=== PATIENT | female | born 1985 | race Caucasian/White ===

== ENCOUNTER 2018-01-05 17:16 | Emergency (ER) | payer OTHER ==
[2018-01-05 17:22] VITALS: BP 142/96; PULSE 81; TEMP 98.6; BMI 33.2
--- NOTE | 2018-01-05 17:24 | PDOC ---
Rapid Medical Evaluation Time Seen by Provider: 01/05/18 17:19 Medical Evaluation: Allergies Allergy/AdvReac Type Severity Reaction Status Date / Time No Known Drug Allergies Allergy Verified 01/05/18 17:18 LACTOSE AdvReac Uncoded 01/05/18 17:18 01/05/18 17:19 The patient presents with a chief complaint of: shortness of breath for two days. Feels like she can't catch her breath. No recent travel, no control use. Pt. is congested with cough. I have performed a brief in-person evaluation of this patient; Pertinent physical exam findings: ambulatory, in no respiratory distress, CTAB, RRR I have ordered the following: CBC, CMP, UA, Upreg, EKG, CXR The patient will proceed to the ED for further evaluation.
[2018-01-05 18:43] LABS: BASO % 0.4 % (0-2.0); EOS % 0.6 % (0-4.5); HEMATOCRIT 35.7 % (32.4-45.2); HEMOGLOBIN 11.8 GM/dL (10.7-15.3); LYMPH % 37.3 % (8-40); MCH 29.6 pg (25.7-33.7); MCHC 33.1 g/dl (32.0-36.0); MEAN CELL VOLUME 89.5 fl (80-96); MEAN PLT VOLUME 8.3 fl (7.5-11.1); MONO % 5.3 % (3.8-10.2); NEUT % 56.4 % (42.8-82.8); PLATELET COUNT 255 K/MM3 (134-434); RBC 3.99 M/mm3 (3.60-5.2); RDW 13.8 % (11.6-15.6); WHITE BLOOD COUNT 6.4 K/mm3 (4.0-10.0)
[2018-01-05 18:53] LABS: HCG,QUALITATIVE URINE NEGATIVE
[2018-01-05 18:56] LABS: URINE APPEARANCE CLEAR; URINE BILIRUBIN NEGATIVE (NEGATIVE); URINE BLOOD NEGATIVE (NEGATIVE); URINE COLOR STRAW; URINE GLUCOSE (UA) NEGATIVE (NEGATIVE); URINE KETONE NEGATIVE (NEGATIVE); URINE LEUK ESTERASE TRACE (NEGATIVE); URINE NITRITE NEGATIVE (NEGATIVE); URINE PROTEIN NEGATIVE (NEGATIVE); URINE UROBILINOGEN NEGATIVE mg/dL (0.2-1.0)
[2018-01-05 19:15] LABS: ALBUMIN 4.5 g/dl (3.4-5.0); ALK PHOS 79 U/L (45-117); ANION GAP 8 (8-16); BILIRUBIN,TOTAL 0.3 mg/dL (0.2-1.0); BLOOD UREA NITROGEN 5 mg/dL (7-18); CALCIUM 8.9 mg/dL (8.5-10.1); CHLORIDE 103 mmol/L (98-107); CO2 27 mmol/L (21-32); CREATININE 0.5 mg/dL (0.55-1.02); GLUCOSE,RANDOM 88 mg/dL (74-106); POTASSIUM 3.9 mmol/L (3.5-5.1); SGOT/AST 10 U/L (15-37); SGPT/ALT 20 U/L (12-78); SODIUM 138 mmol/L (136-145); TOT PROT 7.8 g/dl (6.4-8.2)
[2018-01-05 19:20] LABS: EPI CELLS RARE /HPF (FEW); URINE BACTERIA RARE /hpf (NONE SEEN); URINE MUCUS RARE
--- NOTE | 2018-01-05 20:08 | PDOC ---
History of Present Illness <Samanta Sidhu - Last Filed: 01/05/18 20:53> - General History Source: Patient Exam Limitations: No Limitations - History of Present Illness Initial Comments: 01/05/18 20:31 The patient is a 32 year old female with a significant PMH of anemia, asthma, and migraines who presents to the emergency department with 1 day of increased shortness of breath and 2 weeks of cold-like symptoms including productive cough , nasal congestion, and body aches. The patient describes her shortness of breath as worse with minimal exertion and alleviated by lying down. She reports having body aches over the past 2 weeks which has particularly worsened on the left side of her neck and left extremities. She reports going to Urgent Care this past week and being told she had a sinus infection. The patient also notes having a nose bleed this morning after blowing her nose. She denies taking any medications for her symptoms. The patient denies chest pain, headache and dizziness. Denies fever, chills, nausea, vomit, diarrhea and constipation. Denies dysuria, frequency, urgency and hematuria. Allergies: NKDA. Lactose. Past surgical history: None reported. Social history: No reported cigarette, alcohol, or drug use. PCP: None reported. <Jacob Barba - Last Filed: 01/05/18 21:06> - General Chief Complaint: Shortness of Breath Stated Complaint: S.O.B Time Seen by Provider: 01/05/18 17:19 Past History - Past Medical History Anemia: Yes Asthma: Yes (last attack 1 month ago) Cancer: No Cardiac Disorders: No COPD: No Diabetes: No HTN: No Seizures: No Thyroid Disease: No Other medical history: MIGRAINES - Surgical History Abdominal Surgery: Yes (UMB HERNIA) - Reproductive History (#): 5 Para: 2 Therapeutic (s) & number: Yes (1) Spontaneous : 1 - Suicide/Smoking/Psychosocial Hx Smoking Status: No Smoking History: Never smoked Have you smoked in the past 12 months: No Number of Cigarettes Smoked Daily: 1 Information on smoking cessation initiated: No Hx Alcohol Use: No Drug/Substance Use Hx: No Substance Use Type: None Hx Substance Use Treatment: No <Samanta Sidhu - Last Filed: 01/05/18 20:53> <Jacob Barba - Last Filed: 01/05/18 21:06> - Past Medical History Allergies/Adverse Reactions: Allergies Allergy/AdvReac Type Severity Reaction Status Date / Time No Known Drug Allergies Allergy Verified 01/05/18 17:18 LACTOSE AdvReac Uncoded 01/05/18 17:18 Home Medications: Ambulatory Orders Pnv95/Iron Fum/Folic Acid [ Caplet] 1 each PO DAILY 03/06/16 Ibuprofen [Motrin -] 600 mg PO QID #28 tablet 08/01/16 Amoxicillin/Potassium Clav [Augmentin 875-125 Tablet] 1 each PO BID #14 tablet 08/04/16 Review of Systems - Review of Systems Able to Perform ROS?: Yes Comments:: 01/05/18 20:31 GENERAL/CONSTITUTIONAL: (+) Body aches. No fever or chills. No weakness. HEAD, EYES, EARS, NOSE AND THROAT: (+) Nasal congestion. No change in vision. No ear pain or discharge. No sore throat. CARDIOVASCULAR: (+) Shortness of breath. No chest pain. RESPIRATORY: No cough, wheezing, or hemoptysis. GASTROINTESTINAL: No nausea, vomiting, diarrhea or constipation. GENITOURINARY: No dysuria, frequency, or change in urination. MUSCULOSKELETAL: (+) Left side neck, left UE and left LE soreness. No joint pain. No neck or back pain. SKIN: No rash NEUROLOGIC: No headache, vertigo, loss of consciousness, or change in strength/ sensation. ENDOCRINE: No increased thirst. No abnormal weight change. HEMATOLOGIC/LYMPHATIC: No anemia, easy bleeding, or history of blood clots. ALLERGIC/IMMUNOLOGIC: No hives or skin allergy. <Jacob Barba - Last Filed: 01/05/18 21:06> *Physical Exam - Vital Signs Last Vital Signs Temp Pulse Resp BP Pulse Ox 98.6 F 81 18 142/96 97 01/05/18 17:18 01/05/18 17:18 01/05/18 17:18 01/05/18 17:18 01/05/18 17:18 <Samanta Sidhu - Last Filed: 01/05/18 20:53> - Vital Signs Last Vital Signs Temp Pulse Resp BP Pulse Ox 98.6 F 81 18 142/96 97 01/05/18 17:18 01/05/18 17:18 01/05/18 17:18 01/05/18 17:18 01/05/18 17:18 - Physical Exam Comments: 01/05/18 21:06 GENERAL: Awake, alert, and fully oriented, in no acute distress HEAD: No signs of trauma EYES: PERRLA, EOMI, sclera anicteric, conjunctiva clear ENT: Auricles normal inspection, hearing grossly normal, nares patent, oropharynx clear without exudates. Moist mucosa NECK: Normal ROM, supple, no lymphadenopathy, JVD, or masses LUNGS: Breath sounds equal, clear to auscultation bilaterally. No wheezes, and no crackles HEART: Regular rate and rhythm, normal S1 and S2, no murmurs, rubs or gallops ABDOMEN: Soft, nontender, normoactive bowel sounds. No guarding, no rebound. No masses EXTREMITIES: Normal range of motion, no edema. Strength 5/5 in all upper and lower extremities. No clubbing or cyanosis. No cords, erythema, or tenderness NEUROLOGICAL: Cranial nerves II through XII grossly intact. Normal speech, normal gait SKIN: Warm, Dry, normal turgor, no rashes or lesions noted. <Jacob Barba - Last Filed: 01/05/18 21:06> ED Treatment Course - LABORATORY CBC & Chemistry Diagram: 01/05/18 18:25 01/05/18 18:25 - ADDITIONAL ORDERS Additional order review: Laboratory Results 01/05/18 01/05/18 18:33 18:25 Sodium 138 Potassium 3.9 Chloride 103 Carbon Dioxide 27 Anion Gap 8 BUN 5 L Creatinine 0.5 L Creat Clearance w eGFR > 60 Random Glucose 88 Calcium 8.9 Total Bilirubin 0.3 D AST 10 L ALT 20 Alkaline Phosphatase 79 Total Protein 7.8 Albumin 4.5 Urine Color Straw Urine Appearance Clear Urine pH 7.0 Ur Specific [place] 1.004 Urine Protein Negative Urine Glucose (UA) Negative Urine Ketones Negative Urine Blood Negative Urine Nitrite Negative Urine Bilirubin Negative Urine Urobilinogen Negative Ur Leukocyte Esterase Trace Urine WBC (Auto) 1 Urine RBC (Auto) 1 Ur Epithelial Cells Rare Urine Bacteria Rare Urine Mucus Rare Urine HCG, Qual Negative 01/05/18 18:25 RBC 3.99 D MCV 89.5 MCHC 33.1 RDW 13.8 D MPV 8.3 Neutrophils % 56.4 D Lymphocytes % 37.3 D Monocytes % 5.3 Eosinophils % 0.6 Basophils % 0.4 <Samanta Sidhu - Last Filed: 01/05/18 20:53> - LABORATORY CBC & Chemistry Diagram: 01/05/18 18:25 01/05/18 18:25 - ADDITIONAL ORDERS Additional order review: Laboratory Results 01/05/18 02 18:33 18:25 Sodium 138 Potassium 3.9 Chloride 103 Carbon Dioxide 27 Anion Gap 8 BUN 5 L Creatinine 0.5 L Creat Clearance w eGFR > 60 Random Glucose 88 Calcium 8.9 Total Bilirubin 0.3 D AST 10 L ALT 20 Alkaline Phosphatase 79 Total Protein 7.8 Albumin 4.5 Urine Color Straw Urine Appearance Clear Urine pH 7.0 Ur Specific [place] 1.004 Urine Protein Negative Urine Glucose (UA) Negative Urine Ketones Negative Urine Blood Negative Urine Nitrite Negative Urine Bilirubin Negative Urine Urobilinogen Negative Ur Leukocyte Esterase Trace Urine WBC (Auto) 1 Urine RBC (Auto) 1 Ur Epithelial Cells Rare Urine Bacteria Rare Urine Mucus Rare Urine HCG, Qual Negative 01/05/18 18:25 RBC 3.99 D MCV 89.5 MCHC 33.1 RDW 13.8 D MPV 8.3 Neutrophils % 56.4 D Lymphocytes % 37.3 D Monocytes % 5.3 Eosinophils % 0.6 Basophils % 0.4 <Jacob Barba - Last Filed: 01/05/18 21:06> Medical Decision Making - Medical Decision Making 01/05/18 20:53 Pt presents to the ED complaining of chest discomfort and shortness of breath. Patient is low risk for cardiac disease and is PERC negative. CXR checked to rule out PNA and is negative. Labs checked to rule out severe anemia, and Hgb is 11.8. EKG is normal. Will discharge home with follow up with PMD. <Samanta Sidhu - Last Filed: 01/05/18 20:53> *DC/Admit/Observation/Transfer - Discharge Dispostion Admit: No <Samanta Sidhu - Last Filed: 01/05/18 20:53> - Attestations Scribe Attestion: 01/05/18 20:31 Documentation prepared by Jacob Barba, acting as medical librarian for Samanta Sidhu MD. <Jacob Barba - Last Filed: 01/05/18 21:06> Diagnosis at time of Disposition: Shortness of breath - Discharge Dispostion Disposition: HOME Condition at time of disposition: Good - Patient Instructions Printed Discharge Instructions: DI for Shortness of Breath Additional Instructions: return to the ED for new or changing symptoms, especially severe chest pain or shortness of breath, fevers, other new or changing symptoms. Make sure that you follow up with your PMD within one week.
--- NOTE | 2018-01-07 11:28 | EKG ---
Test Reason : Blood Pressure : / mmHG Vent. Rate : 063 BPM Atrial Rate : 063 BPM P-R Int : 170 ms QRS Dur : 092 ms QT Int : 408 ms P-R-T Axes : 064 072 067 degrees QTc Int : 417 ms NORMAL SINUS RHYTHM WITH SINUS ARRHYTHMIA NORMAL ECG NO PREVIOUS ECGS AVAILABLE Confirmed by SADE HURD, CARA ([id number]) on 01/07/2018 11:28:16 AM Referred By: Confirmed By:CARA STUART MD
== END 2018-01-05 21:14 | disposition home or self-care (01) ==
LOC: JER 17:16
DX: R06.02 Shortness of breath (principal); J45.909 Unspecified asthma, uncomplicated; D64.9 Anemia, unspecified; G43.909 Migraine, unspecified, not intractable, without status migrainosus
CPT/HCPCS: 36415; 71046-TC-FY; 80053; 81003; 81015; 84703; 85025; 93005; 93010; 99282-25

== ENCOUNTER 2018-06-26 22:42 | Emergency (ER) | payer OTHER ==
[2018-06-26 22:46] VITALS: BMI 28.5
[2018-06-26] MEDS ORDERED: SODIUM CHLORIDE 1,000 ML IV STA (23:31)
[2018-06-26] MEDS ORDERED: FAMOTIDINE 20 MG/50 ML IVPB 20 MG/50 ML MG IVPB ONE (23:45)
--- NOTE | 2018-06-27 00:34 | PDOC ---
History of Present Illness - General Chief Complaint: Pain Stated Complaint: ABD PAIN Time Seen by Provider: 06/27/18 00:24 - History of Present Illness Initial Comments: 06/27/18 01:30 Ms. Bergman is a 32 yo female w/ pmh of anemia, asthma, and migraines who presents for evaluation of several day history of RLQ pain. She also reports she has had a 2 week history of increased constipation. She reports last BM was today however was smaller in nature than a typical bowel movement. She has also had increased frequency over this time period as well as intermittent chills. The patient denies chest pain, shortness of breath, headache and dizziness. Denies fever, nausea, vomit, and diarrhea. Denies dysuria, urgency and hematuria. Allergies: NKDA Past History - Past Medical History Allergies/Adverse Reactions: Allergies Allergy/AdvReac Type Severity Reaction Status Date / Time No Known Drug Allergies Allergy Verified 06/26/18 22:46 LACTOSE AdvReac Uncoded 06/26/18 22:46 Home Medications: Ambulatory Orders Naproxen 500 mg PO BID PRN #20 tablet 06/27/18 Anemia: Yes Asthma: Yes (last attack 1 month ago) Cancer: No Cardiac Disorders: No COPD: No Diabetes: No HTN: No Seizures: No Thyroid Disease: No - Surgical History Abdominal Surgery: Yes (UMB HERNIA) - Reproductive History (#): 5 Para: 2 Therapeutic (s) & number: Yes (1) Spontaneous : 1 - Suicide/Smoking/Psychosocial Hx Smoking Status: No Smoking History: Never smoked Have you smoked in the past 12 months: No Number of Cigarettes Smoked Daily: 1 Hx Alcohol Use: No Drug/Substance Use Hx: No Substance Use Type: None Hx Substance Use Treatment: No Review of Systems - Review of Systems Comments:: 06/27/18 01:32 GENERAL/CONSTITUTIONAL: No fever or chills. No weakness. HEAD, EYES, EARS, NOSE AND THROAT: No change in vision. No ear pain or discharge. No sore throat. CARDIOVASCULAR: No chest pain or shortness of breath RESPIRATORY: No cough, wheezing, or hemoptysis. GASTROINTESTINAL: +RLQ pain with constipation. No nausea, vomiting, or diarrhea. GENITOURINARY: +Frequency as described. No dysuria, or other change in urination. MUSCULOSKELETAL: No joint or muscle swelling or pain. No neck or back pain. SKIN: No rash NEUROLOGIC: No headache, vertigo, loss of consciousness, or change in strength/ sensation. ENDOCRINE: No increased thirst. No abnormal weight change HEMATOLOGIC/LYMPHATIC: No anemia, easy bleeding, or history of blood clots. ALLERGIC/IMMUNOLOGIC: No hives or skin allergy. *Physical Exam - Vital Signs Last Vital Signs Temp Pulse Resp BP Pulse Ox 98.2 F 66 20 136/77 99 06/26/18 22:43 06/26/18 22:43 06/26/18 22:43 06/26/18 22:43 06/26/18 22:43 - Physical Exam Comments: 06/27/18 01:33 GENERAL: Awake, alert, and fully oriented, in no acute distress HEAD: No signs of trauma, normocephalic, atraumatic EYES: PERRLA, EOMI, sclera anicteric, conjunctiva clear ENT: Auricles normal inspection, hearing grossly normal, nares patent, oropharynx clear without exudates. Moist mucosa NECK: Normal ROM, supple, no lymphadenopathy, JVD, or masses LUNGS: No distress, speaks full sentences, clear to auscultation bilaterally HEART: Regular rate and rhythm, normal S1 and S2, no murmurs, rubs or gallops, peripheral pulses normal and equal bilaterally. ABDOMEN: Soft, nontender, normoactive bowel sounds. No guarding, no rebound. No masses EXTREMITIES: Normal inspection, Normal range of motion, no edema. No clubbing or cyanosis. NEUROLOGICAL: Cranial nerves II through XII grossly intact. Normal speech, normal gait, no focal sensorimotor deficits SKIN: Warm, Dry, normal turgor, no rashes or lesions noted. : +Right adnexal tenderness. No CMT, os closed, physiologic discharge noted. ED Treatment Course - LABORATORY CBC & Chemistry Diagram: 06/27/18 00:54 06/27/18 00:54 Medical Decision Making - Medical Decision Making 06/27/18 01:40 Ms. Bergman is a 32 yo female w/ pmh as described who presents for evaluation of RLQ pain. Exam significant for RLQ tenderness concerning for appendicitis vs. torsion. Patient awaiting US read for transvaginal US and RLQ US. Labs in progress for evaluation of infection process. Patient signed out to Dr. Pisano for further evaluation. *DC/Admit/Observation/Transfer Diagnosis at time of Disposition: Abdominal pain Qualifiers: Abdominal location: lower abdomen, unspecified Qualified Code(s): R10.30 - Lower abdominal pain, unspecified - Discharge Dispostion Disposition: HOME Condition at time of disposition: Good - Prescriptions Prescriptions: Naproxen 500 mg PO BID PRN #20 tablet PRN Reason: Pain - Referrals Referrals: Juliette Baker [Primary Care Provider] - - Patient Instructions Printed Discharge Instructions: DI for Abdominal Pain-Adult Additional Instructions: Please bring a copy of your results of your CT and ultrasound. Take 500 mg naproxen every 12 hours as needed for pain. Follow up with your doctor. - Post Discharge Activity
[2018-06-27] MEDS ORDERED: FAMOTIDINE 20 MG/50 ML IVPB 20 MG/50 ML MG IVPB ONE (00:40)
[2018-06-27 01:14] LABS: BASO % 0.3 % (0-2.0); EOS % 1.3 % (0-4.5); HEMATOCRIT 34.5 % (32.4-45.2); HEMOGLOBIN 11.9 GM/dL (10.7-15.3); LYMPH % 41.4 % (8-40); MCH 30.4 pg (25.7-33.7); MCHC 34.4 g/dl (32.0-36.0); MEAN CELL VOLUME 88.4 fl (80-96); MEAN PLT VOLUME 8.2 fl (7.5-11.1); MONO % 8.6 % (3.8-10.2); NEUT % 48.4 % (42.8-82.8); PLATELET COUNT 249 K/MM3 (134-434); RDW 13.7 % (11.6-15.6); WHITE BLOOD COUNT 6.3 K/mm3 (4.0-10.0)
[2018-06-27] MEDS ORDERED: KETOROLAC TROMETHAMINE 15 MG/ML VIAL IVPUSH ONE (01:20)
[2018-06-27] MEDS ORDERED: KETOROLAC TROMETHAMINE 15 MG/ML VIAL ONE (01:31)
--- NOTE | 2018-06-27 01:40 | PDOC ---
Attending Attestation - HPI HPI: 06/27/18 01:55 Ms. Kehinde Bergman is a 32-year-old female with a past medical history of asthma and anemia (during ) presents to the emergency department with abdominal pain. The patient presents with RLQ pain that radiates down to the R. groin= and R. lower back, 5/10 in severity, mild relief noted with Tylenol. The patient reports following up with a doctor, who states it might be ovulatory, the patient denies the similarity. The patient reports associated concern of increased urinary frequency, constipation, subjective chills and nausea. The patient states 2 days prior she experienced mucus consistency vaginal discharge (now resolved). The patient reports secondary to the recent weather, patients been experiencing flare ups of asthma symptoms. Denies vaginal bleeding or discharge. Denies dysuria, hematuria or urgency to urinate. No cp or sob, no flank pain. (+) Urinary frequency. RLQ pain that radiates to the R. inguinal region and R. lower back. Constipation. Nausea. Fever with temp of 100 and chills. Allergies: LACTOSE. NKDA. Seasonal allergies. Surgical/procedure history: Umbilical Hernia. Colposcopy. cervical biopsy at age 19. Social history: None reported LMP: 06/12/2018 (States she started bleeding 2 weeks early, and the cycle lasted 8 days ago, states initially she was bleeding heavily). PCP: Juliette Baker - Physicial Exam PE: 06/27/18 01:55 General: Well appearing, awake and alert, NAD. HEENT: NCAT, PERRL, EOMI, clear conjunctiva, anicteric, moist mucus membranes, clear oropharynx, no oral lesions.. Neck: neck supple, FROM Resp: CTAB, normal and even respirations, no respiratory distress CVS: RRR, no murmurs, 2+ peripheral pulses throughout, no peripheral edema Abdomen: soft, normal inspection. +RLQ and pelvic TTP; no peritoneal signs. No rebound or guarding. No CVAT Female : normal external genitalia, no lesions, clear vaginal vault, no CMT, no adnexal tenderness. Smooth and pink cervix, closed. +mild erythema around cervical os likely from prior colpo Back: nontender, normal inspection and ROM MSK: no edema, VICTOR x4, ROM intact. No clubbing or cyanosis. normal bulk and tone. Neuro: alert, oriented appropriately; no focal neurologic deficits. SILT, 5/5 distal and prox strength in all extrem. speech clear. Skin: warm and well perfused, cap refill <2 sec, normal color <June Diaz - Last Filed: 06/27/18 01:55> - Resident Resident Name: Chapin Maria - ED Attending Attestation I have performed the following: I have examined & evaluated the patient, The case was reviewed & discussed with the resident, I agree w/resident's findings & plan, Exceptions are as noted - Medical Decision Making 06/27/18 01:40 A portion of this note was documented by scribe services under my direction. I have reviewed the details of the note, within reason, and agree with the documentation with the following case summary and management plan written by me. 32 YOF with anemia and asthma p/w RLQ and pelvic pain x 4 days, +urinary frequency; no discharge or VB. ?chills, +constipated. PSH for umbilical hernia only. DDx female abdominal pain: ovarian cyst, ovarian torsion, TOA, appendicitis, UTI , pyelonephritis, Mittelschmerz, - pelvic exam unremarkable, +right adnexal tenderness noted, but no abnormal discharge or bleeding. no CMT. no flank pain to suggest renal colic, pending UA to determine if early acute pyelo. Vital signs wnl, no fever. Toradol and IVF, pepcid for pain/hydration. Plan: CBC, CMP, lipase, UA, Upreg. TVUS and US appx to r/o appy/ s/o Dr. Pisano pending imaging and workup, if neg, and persistent RLQ pain, CT a/ p to r/o appy and ultimate dispo 06/27/18 02:14 <Adamaris Peters - Last Filed: 06/27/18 02:16>
[2018-06-27 02:03] LABS: ALBUMIN 4.2 g/dl (3.4-5.0); ALK PHOS 62 U/L (45-117); ANION GAP 8 (8-16); BILIRUBIN,TOTAL 0.2 mg/dL (0.2-1.0); BLOOD UREA NITROGEN 8 mg/dL (7-18); CALCIUM 9.2 mg/dL (8.5-10.1); CHLORIDE 104 mmol/L (98-107); CO2 29 mmol/L (21-32); CREATININE 0.6 mg/dL (0.55-1.02); GLUCOSE,RANDOM 77 mg/dL (74-106); LIPASE 86 U/L (73-393); POTASSIUM 3.7 mmol/L (3.5-5.1); SGOT/AST 13 U/L (15-37); SGPT/ALT 21 U/L (12-78); SODIUM 141 mmol/L (136-145); TOT PROT 7.7 g/dl (6.4-8.2)
[2018-06-27 02:26] LABS: URINE APPEARANCE CLEAR; URINE BILIRUBIN NEGATIVE (<2.0 mg/dL); URINE COLOR YELLOW; URINE GLUCOSE (UA) NEGATIVE (NEGATIVE); URINE KETONE NEGATIVE (NEGATIVE); URINE LEUK ESTERASE NEGATIVE (NEGATIVE); URINE NITRITE NEGATIVE (NEGATIVE); URINE PROTEIN NEGATIVE (NEGATIVE); URINE UROBILINOGEN NEGATIVE mg/dL (0.2-1.0)
[2018-06-27 02:43] LABS: EPI CELLS RARE /HPF (FEW)
--- NOTE | 2018-06-27 03:06 | PDOC ---
*Physical Exam - Vital Signs Last Vital Signs Temp Pulse Resp BP Pulse Ox 98.2 F 66 20 136/77 99 06/26/18 22:43 06/26/18 22:43 06/26/18 22:43 06/26/18 22:43 06/26/18 22:43 ED Treatment Course - LABORATORY CBC & Chemistry Diagram: 06/27/18 00:54 06/27/18 00:54 - ADDITIONAL ORDERS Additional order review: Laboratory Results 06/27/18 06/27/18 06/27/18 01:55 01:55 00:54 Sodium 141 Potassium 3.7 Chloride 104 Carbon Dioxide 29 Anion Gap 8 BUN 8 Creatinine 0.6 Creat Clearance w eGFR > 60 Random Glucose 77 Calcium 9.2 Total Bilirubin 0.2 AST 13 L ALT 21 Alkaline Phosphatase 62 Total Protein 7.7 Albumin 4.2 Lipase 86 Urine Color Yellow Urine Appearance Clear Urine pH 6.0 Ur Specific [place] 1.019 Urine Protein Negative Urine Glucose (UA) Negative Urine Ketones Negative Urine Blood 1+ H Urine Nitrite Negative Urine Bilirubin Negative Urine Urobilinogen Negative Ur Leukocyte Esterase Negative Urine WBC (Auto) 1 Urine RBC (Auto) 8 Ur Epithelial Cells Rare Urine HCG, Qual Negative 06/27/18 00:54 RBC 3.90 MCV 88.4 MCHC 34.4 RDW 13.7 MPV 8.2 Neutrophils % 48.4 Lymphocytes % 41.4 H Monocytes % 8.6 Eosinophils % 1.3 D Basophils % 0.3 - Medications Given in the ED: ED Medications Discontinued Medications Generic Name Dose Route Start Last Admin Trade Name Freq PRN Reason Stop Dose Admin Famotidine/Sodium Chloride 20 mg in 50 mls @ 100 mls/hr 06/26/18 23:45 00:59 Pepcid 20 Mg Premixed Ivpb - IVPB 06/27/18 00:14 100 mls/hr ONCE ONE Administration Sodium Chloride 1,000 mls @ 1,000 mls/hr 06/26/18 23:31 06/27/18 00:59 Normal Saline - IV 06/27/18 00:30 1,000 mls/hr ASDIR STA Administration Medical Decision Making - Medical Decision Making 06/27/18 03:[address] Peters and Dr. Maria. Pt with right lower abdominal pain. Ultrasound reviewed. No ovarian torsion. 1.5 cm follicle right ovary. Normal uterus. Appendix could not be visualized. 06/27/18 06:48 CT abdomen and pelvis shows no acute appendicitis. Small periumbilical hernia containing fat. 06/27/18 06:50 The patient feels reassurred. Labs reviewed. Pt suspects that she may have had an ovarian cyst that may have ruptured. Either way, she feels comfortable going home. Her partner will drive her. She will follow up with her doctor. *DC/Admit/Observation/Transfer Diagnosis at time of Disposition: Abdominal pain Qualifiers: Abdominal location: lower abdomen, unspecified Qualified Code(s): R10.30 - Lower abdominal pain, unspecified - Discharge Dispostion Disposition: HOME Condition at time of disposition: Good Decision to Admit order: No - Prescriptions Prescriptions: Naproxen 500 mg PO BID PRN #20 tablet PRN Reason: Pain - Referrals Referrals: Juliette Baker [Primary Care Provider] - - Patient Instructions Printed Discharge Instructions: DI for Abdominal Pain-Adult Additional Instructions: Please bring a copy of your results of your CT and ultrasound. Take 500 mg naproxen every 12 hours as needed for pain. Follow up with your doctor. - Post Discharge Activity
[2018-06-27 06:58] VITALS: BP 103/65; PULSE 49; TEMP 97.7
--- NOTE | 2018-06-29 10:43 | EKG ---
Test Reason : Blood Pressure : / mmHG Vent. Rate : 053 BPM Atrial Rate : 053 BPM P-R Int : 168 ms QRS Dur : 094 ms QT Int : 404 ms P-R-T Axes : 063 073 069 degrees QTc Int : 379 ms SINUS BRADYCARDIA OTHERWISE NORMAL ECG WHEN COMPARED WITH ECG OF 05-JAN-2018 20:23, NO SIGNIFICANT CHANGE WAS FOUND Confirmed by AMELIA COLLINS MD ([id number]) on 06/29/2018 10:42:33 AM Referred By: Confirmed By:AMELIA COLLINS MD
== END 2018-06-27 07:07 | disposition home or self-care (01) ==
LOC: JER 22:42
PROC: 3E0337Z Introduction of Electrolytic and Water Balance Substance into Peripheral Vein, Percutaneous Approach (ICD-10-PCS; principal; 2018-06-26)
PROC: 3E033GC Introduction of Other Therapeutic Substance into Peripheral Vein, Percutaneous Approach (ICD-10-PCS; 2018-06-26)
PROC: 3E0333Z Introduction of Anti-inflammatory into Peripheral Vein, Percutaneous Approach (ICD-10-PCS; 2018-06-26)
DX: N83.201 Unspecified ovarian cyst, right side (principal); J45.909 Unspecified asthma, uncomplicated; Z86.2 Personal history of diseases of the blood and blood-forming organs and certain disorders involving the immune mechanism
CPT/HCPCS: 36415; 74177-TC; 76830-TC; 76856-TC; 80053; 81003; 81015; 83690; 84703; 85025; 87086; 93005; 93010; 96361; 96365; 96375; 99283-25; J7030

== ENCOUNTER 2018-11-12 10:18 | Emergency (ER) | payer OTHER ==
[2018-11-12 10:35] VITALS: BMI 13.6
--- NOTE | 2018-11-12 11:40 | PDOC ---
History of Present Illness - General History Source: Patient Exam Limitations: No Limitations - History of Present Illness Initial Comments: CHIEF COMPLAINT: 33 y/o afebrile female with PMH asthma with multiple complaints x 6 days. HISTORY OF PRESENT ILLNESS: The patient states while shopping 6 days ago she had a sharp pain in her left shoulder and chest wall and every since has had some tingling in her left 4th and 5th fingers. She states since that time she' s felt overly tired with a "pressure" in the left side of her throat only when she swallows. Last week her one child had a viral illness and another had a stomach bug. She denies STEVENSON, dizziness, changes in vision/hearing, n/v/d, f/c, CP, SOB, abd pain, back pain, recent travel, smoking history, control use. She does work in an urgent care. Vital signs on arrival are within normal limits. REVIEW OF SYSTEMS: GENERAL/CONSTITUTIONAL: No fever/chills. No weakness. No weight change. + fatigue HEAD, EYES, EARS, NOSE AND THROAT: +left sided throat pressure. No change in vision. No ear pain or discharge. No sore throat. CARDIOVASCULAR: No chest pain or shortness of breath. RESPIRATORY: No cough, wheezing, or hemoptysis. GASTROINTESTINAL: No nausea, vomiting, diarrhea. GENITOURINARY: No dysuria, frequency, or change in urination. MUSCULOSKELETAL: +left shoulder pain - resolved. +intermittent tingling to left 4th and 5th fingers. No joint or muscle swelling or pain. No neck or back pain. SKIN: No rash or easy bruising. NEUROLOGIC: No headache, vertigo, loss of consciousness, or loss of sensation. PHYSICAL EXAM: GENERAL: The patient is awake, alert, and fully oriented, in no acute distress. She is well appearing. HEAD: Normal with no signs of trauma. ENT: Pupils equal, round and reactive to light, extraocular movements intact, sclera anicteric, conjunctiva clear and pink. Neck supple. No cervical lymphadenopathy. No tonsilar erythema, edema or exudate. Uvula midline. No carotid bruits. LUNGS: Clear to auscultation bilaterally. Normal excursion. No respiratory distress or use of accessory muscles. CV: RRR, S1/S2, no MRG. Cap refill < 2 sec. ABDOMEN: Soft, non-distended, non-tender even to deep palpation, no hepatomegaly or splenomegaly, no masses. EXTREMITIES: Normal range of motion, no edema. NEUROLOGICAL: Normal speech, normal gait. CN II-XII grossly intact. SKIN: Warm, dry, normal turgor, no rashes or lesions noted. <Jaimie Giraldo - Last Filed: 11/12/18 14:09> <Queenie Shelby - Last Filed: 11/14/18 10:35> - General Chief Complaint: Shortness of Breath Stated Complaint: SOB, LT SIDE NUMBNESS Time Seen by Provider: 11/12/18 11:25 Past History - Past Medical History Anemia: Yes Asthma: Yes (last attack 1 month ago) Cancer: No Cardiac Disorders: No COPD: No Diabetes: No HTN: No Seizures: No Thyroid Disease: No - Surgical History Abdominal Surgery: Yes (UMB HERNIA) - Reproductive History (#): 5 Para: 2 Therapeutic (s) & number: Yes (1) Spontaneous : 1 - Immunization History Immunization Up to Date: Yes - Suicide/Smoking/Psychosocial Hx Smoking Status: No Smoking History: Never smoked Have you smoked in the past 12 months: No Number of Cigarettes Smoked Daily: 1 Hx Alcohol Use: No Drug/Substance Use Hx: No Substance Use Type: None Hx Substance Use Treatment: No <Jaimie Giraldo - Last Filed: 11/12/18 14:09> <Queenie Shelby - Last Filed: 11/14/18 10:35> - Past Medical History Allergies/Adverse Reactions: Allergies Allergy/AdvReac Type Severity Reaction Status Date / Time No Known Drug Allergies Allergy Verified 11/12/18 10:31 LACTOSE AdvReac Uncoded 11/12/18 10:31 Home Medications: Ambulatory Orders Albuterol Sulfate Inhaler - [Ventolin Hfa Inhaler -] 1 - 2 inh PO QID PRN Multivit with Iron,Minerals [Compete] 1 each PO DAILY 11/12/18 *Physical Exam - Vital Signs Last Vital Signs Temp Pulse Resp BP Pulse Ox 98.8 F 84 16 135/85 100 11/12/18 10:31 11/12/18 10:31 11/12/18 10:31 11/12/18 10:31 11/12/18 10:31 <Jaimie Giraldo - Last Filed: 11/12/18 14:09> - Vital Signs Last Vital Signs Temp Pulse Resp BP Pulse Ox 98.3 F 72 17 118/74 98 11/12/18 14:10 11/12/18 14:10 11/12/18 14:10 11/12/18 14:10 11/12/18 14:10 <Queenie Shelby - Last Filed: 11/14/18 10:35> Moderate Sedation - Procedure Monitoring Vital Signs: Procedure Monitoring Vital Signs Temperature 98.8 F 11/12/18 10:31 Pulse Rate 84 11/12/18 10:31 Respiratory Rate 16 11/12/18 10:31 Blood Pressure 135/85 11/12/18 10:31 O2 Sat by Pulse Oximetry (%) 100 11/12/18 10:31 <Jaimie Giraldo - Last Filed: 11/12/18 14:09> - Procedure Monitoring Vital Signs: Procedure Monitoring Vital Signs Temperature 98.3 F 11/12/18 14:10 Pulse Rate 72 11/12/18 14:10 Respiratory Rate 17 11/12/18 14:10 Blood Pressure 118/74 11/12/18 14:10 O2 Sat by Pulse Oximetry (%) 98 11/12/18 14:10 <Queenie Shelby - Last Filed: 11/14/18 10:35> ED Treatment Course - LABORATORY CBC & Chemistry Diagram: 11/12/18 11:00 11/12/18 11:00 <Jaimie Giraldo - Last Filed: 11/12/18 14:09> - LABORATORY CBC & Chemistry Diagram: 11/12/18 11:00 11/12/18 11:00 - ADDITIONAL ORDERS Additional order review: 11/12/18 11:00 RBC 4.18 MCV 89.4 MCHC 32.6 RDW 13.9 MPV 8.4 Neutrophils % 75.2 D Lymphocytes % 19.0 D Monocytes % 5.4 Eosinophils % 0.1 D Basophils % 0.3 - Medications Given in the ED: ED Medications Discontinued Medications Generic Name Dose Route Start Last Admin Trade Name Freq PRN Reason Stop Dose Admin Sodium Chloride 1,000 mls @ 1,000 mls/hr 11/12/18 11:42 11/12/18 12:09 Normal Saline - IV 11/12/18 12:41 1,000 mls/hr ASDIR STA Administration Ketorolac Tromethamine 30 mg 11/12/18 13:01 11/12/18 13:14 Toradol Injection - IVPUSH 11/12/18 13:02 30 mg ONCE ONE Administration <Queenie Shelby - Last Filed: 11/14/18 10:35> Medical Decision Making - Medical Decision Making A/P: 33 y/o female with multiple complaints x 6 days, biggest being fatigue. Plan is as follows: 1. labs 2. UA/hcg Labs and UA normal Gave patient toradol Patient has informed me that she has seen her primary for her symptoms, she has had an ECHO, thyroid studies and multiple other tests performed. She has a follow up with her PCP tomorrow to go over all test results. She has a neuro apptmt on 12/04/18. Patient was instructed to keep all appointments and return to the ER with any worsening or concerning symptoms The patient verbalizes understanding of all instructions, has no further questions and is awaiting discharge. <Jaimie Giraldo - Last Filed: 11/12/18 14:09> *DC/Admit/Observation/Transfer <Jaimie Giraldo - Last Filed: 11/12/18 14:09> - Attestations Physician Attestion: I reviewed the case with the mid-level practitioner and agree with the mid- level practitioner's assessment, diagnosis and disposition. <Queenie Shelby - Last Filed: 11/14/18 10:35> Diagnosis at time of Disposition: Worried well, Sore throat - Discharge Dispostion Disposition: HOME Condition at time of disposition: Good - Referrals Referrals: Main Bolaños MD [Staff Physician] - - Patient Instructions Printed Discharge Instructions: Sore Throat Additional Instructions: Discharge Instructions: -All of your lab tests and urine tests were normal -You can take over the counter ibuprofen if needed for pain -Please keep your follow up appointments for tomorrow and for 12/04/18 -Return to the ER with any worsening or concerning symptoms - Post Discharge Activity Forms/Work/School Notes: Back to Work
[2018-11-12] MEDS ORDERED: SODIUM CHLORIDE 1,000 ML IV STA (11:42)
[2018-11-12 12:49] LABS: BASO % 0.3 % (0-2.0); EOS % 0.1 % (0-4.5); HEMATOCRIT 37.4 % (32.4-45.2); HEMOGLOBIN 12.2 GM/dL (10.7-15.3); MCH 29.2 pg (25.7-33.7); MCHC 32.6 g/dl (32.0-36.0); MEAN CELL VOLUME 89.4 fl (80-96); MEAN PLT VOLUME 8.4 fl (7.5-11.1); MONO % 5.4 % (3.8-10.2); NEUT % 75.2 % (42.8-82.8); PLATELET COUNT 240 K/MM3 (134-434); RBC 4.18 M/mm3 (3.60-5.2); RDW 13.9 % (11.6-15.6); WHITE BLOOD COUNT 5.8 K/mm3 (4.0-10.0)
[2018-11-12 12:49] LABS: URINE APPEARANCE CLEAR; URINE BILIRUBIN NEGATIVE (<2.0 mg/dL); URINE COLOR STRAW; URINE GLUCOSE (UA) NEGATIVE (NEGATIVE); URINE KETONE NEGATIVE (NEGATIVE); URINE LEUK ESTERASE NEGATIVE (NEGATIVE); URINE NITRITE NEGATIVE (NEGATIVE); URINE PROTEIN NEGATIVE (NEGATIVE); URINE UROBILINOGEN NEGATIVE mg/dL (0.2-1.0)
[2018-11-12 12:50] LABS: HCG,QUALITATIVE URINE Negative
[2018-11-12] MEDS ORDERED: KETOROLAC TROMETHAMINE 30 MG/1 ML VIAL IVPUSH ONE (13:01)
[2018-11-12] MEDS ORDERED: KETOROLAC TROMETHAMINE 30 MG/1 ML VIAL ONE (13:05)
[2018-11-12 13:22] LABS: ALBUMIN 4.4 g/dl (3.4-5.0); ALK PHOS 53 U/L (45-117); ANION GAP 7 MMOL/L (8-16); BILIRUBIN,TOTAL 0.5 mg/dL (0.2-1); BLOOD UREA NITROGEN 7 mg/dL (7-18); CALCIUM 8.9 mg/dL (8.5-10.1); CHLORIDE 106 mmol/L (98-107); CO2 27 mmol/L (21-32); CREATININE 0.5 mg/dL (0.55-1.3); GLUCOSE,RANDOM 86 mg/dL (74-106); SGOT/AST 10 U/L (15-37); SGPT/ALT 24 U/L (13-61); SODIUM 140 mmol/L (136-145); TOT PROT 7.9 g/dl (6.4-8.2)
[2018-11-12 14:19] VITALS: BP 118/74; PULSE 72; TEMP 98.3
== END 2018-11-12 14:15 | disposition home or self-care (01) ==
LOC: JER 10:18
PROC: 3E0333Z Introduction of Anti-inflammatory into Peripheral Vein, Percutaneous Approach (ICD-10-PCS; principal; 2018-11-12)
PROC: 3E0337Z Introduction of Electrolytic and Water Balance Substance into Peripheral Vein, Percutaneous Approach (ICD-10-PCS; 2018-11-12)
DX: Z71.1 Person with feared health complaint in whom no diagnosis is made (principal); J02.9 Acute pharyngitis, unspecified
CPT/HCPCS: 36415; 80053; 81003; 84703; 85025; 86308; 96361; 96374; 99283-25; J7030